=== PATIENT | female | born 1950 | race Two or more races ===

== ENCOUNTER 2017-09-12 14:41 | Emergency (ER) | payer OTHER ==
[~2017-09-12] VITALS: Ht 152.4 cm; Wt 68.0 kg
[~2017-09-12 14:41] MED LIST: ADVIL100 M1 PO; AMOX1TAB12 PO; DICLOFENAC POTA50 MG PO; DICLOFENAC SOD100 GM TOP; KETO10TA2 PO; PANADOL EXTRA500 MG PO
== END 2017-09-12 15:57 | disposition home or self-care (01) ==
LOC: ER 14:41
DX: M94.0 Chondrocostal junction syndrome [Tietze] (principal); M25.511 Pain in right shoulder

== ENCOUNTER → 2017-11-11 | Outpatient (CLI) | payer OTHER ==
[~2017-11-11] MED LIST changes: +GABAPENTIN300 MG PO
== END | disposition home or self-care (01) ==
LOC: RAD 11:14
DX: M12.862 Other specific arthropathies, not elsewhere classified, left knee (principal); M19.012 Primary osteoarthritis, left shoulder

== ENCOUNTER 2018-05-07 09:21 | Outpatient (CLI) | payer OTHER | END 2018-05-07 09:26 | disposition home or self-care (01) | LOC: LAB 09:21 | DX: I10 Essential (primary) hypertension (principal); E11.9 Type 2 diabetes mellitus without complications; E03.8 Other specified hypothyroidism; E78.2 Mixed hyperlipidemia ==

== ENCOUNTER 2018-06-22 08:42 | Outpatient (CLI) | payer OTHER | END 2018-06-22 09:09 | disposition home or self-care (01) | LOC: LAB 08:42 | DX: I10 Essential (primary) hypertension (principal); D68.8 Other specified coagulation defects; E78.2 Mixed hyperlipidemia; N39.0 Urinary tract infection, site not specified ==

== ENCOUNTER 2018-06-22 08:51 | Outpatient (CLI) | payer OTHER | END 2018-06-22 09:09 | disposition home or self-care (01) | LOC: RAD 08:51 | DX: R07.89 Other chest pain (principal) ==

== ENCOUNTER 2018-07-27 14:20 | Emergency (ER) | payer OTHER ==
[~2018-07-27] VITALS: Ht 152.4 cm; Wt 68.5 kg
[2018-07-27] MEDS ORDERED: CEFADROXIL500 MG PO (17:49)
== END 2018-07-27 17:58 | disposition home or self-care (01) ==
LOC: ER 14:20
DX: L03.012 Cellulitis of left finger (principal)

== ENCOUNTER 2018-10-03 09:57 | Outpatient (CLI) | payer OTHER ==
[~2018-10-03 09:57] MED LIST changes: +CEFADROXIL500 MG PO
== END 2018-10-03 10:05 | disposition home or self-care (01) ==
LOC: LAB 09:57
DX: E11.9 Type 2 diabetes mellitus without complications (principal); I10 Essential (primary) hypertension; E03.8 Other specified hypothyroidism; E78.2 Mixed hyperlipidemia; K92.1 Melena; E55.9 Vitamin D deficiency, unspecified

== ENCOUNTER 2018-12-22 09:05 | Outpatient (CLI) | payer OTHER | END 2018-12-22 17:10 | disposition home or self-care (01) | LOC: RAD 09:05 | DX: J18.0 Bronchopneumonia, unspecified organism (principal) ==

== ENCOUNTER 2019-06-15 12:18 | Emergency (ER) | payer OTHER ==
[~2019-06-15] VITALS: Ht 154.9 cm; Wt 72.6 kg
== END 2019-06-15 16:16 | disposition home or self-care (01) ==
LOC: ER 12:18
DX: M76.892 Other specified enthesopathies of left lower limb, excluding foot (principal)

== ENCOUNTER 2020-06-17 11:46 | Emergency (ER) | payer OTHER ==
[~2020-06-17] VITALS: Ht 154.9 cm; Wt 69.4 kg
[2020-06-17] MEDS ORDERED: GLIMEPIRIDE4 M1 PO (12:12)
== END 2020-06-17 15:52 | disposition home or self-care (01) ==
LOC: ER 11:46
DX: N75.1 Abscess of Bartholin's gland (principal); B95.61 Methicillin susceptible Staphylococcus aureus infection as the cause of diseases classified elsewhere

== ENCOUNTER 2021-07-29 08:31 | Outpatient (CLI) | payer OTHER ==
[~2021-07-29 08:31] MED LIST changes: +GLIMEPIRIDE4 M1 PO
== END 2021-07-29 08:34 | disposition home or self-care (01) ==
LOC: MAMO-SONO 08:31
PROVIDERS: ATTEND Internal Medicine Cardiovascular Disease
DX: N60.02 Solitary cyst of left breast (principal); R92.1 Mammographic calcification found on diagnostic imaging of breast; Z12.31 Encounter for screening mammogram for malignant neoplasm of breast; E55.9 Vitamin D deficiency, unspecified; N64.59 Other signs and symptoms in breast

== ENCOUNTER 2022-07-13 09:19 | Outpatient (CLI) | payer OTHER | END 2022-07-13 09:25 | disposition home or self-care (01) | LOC: RAD 09:19 | PROVIDERS: ATTEND Internal Medicine Cardiovascular Disease | DX: M12.9 Arthropathy, unspecified (principal) ==

== ENCOUNTER 2022-08-05 07:50 | Outpatient (CLI) | payer OTHER | END 2022-08-05 07:55 | disposition home or self-care (01) | LOC: MAMO-SONO 07:50 | PROVIDERS: ATTEND Internal Medicine Cardiovascular Disease | DX: N63.11 Unspecified lump in the right breast, upper outer quadrant (principal) ==

== ENCOUNTER 2022-12-29 09:00 | Outpatient (CLI) | payer OTHER | END 2022-12-29 09:07 | disposition home or self-care (01) | LOC: RAD 09:00 | PROVIDERS: ATTEND Internal Medicine Cardiovascular Disease | DX: M12.9 Arthropathy, unspecified (principal) ==

== ENCOUNTER 2024-04-06 11:23 | Outpatient (CLI) | payer OTHER | END 2024-04-06 11:24 | disposition home or self-care (01) | LOC: NUCLEAR 11:23 | PROVIDERS: ATTEND Internal Medicine Cardiovascular Disease | DX: M81.0 Age-related osteoporosis without current pathological fracture (principal) ==

== ENCOUNTER → 2024-04-06 | Outpatient (CLI) | payer OTHER | END | disposition home or self-care (01) | LOC: MAMO-SONO 09:33 | PROVIDERS: ATTEND Internal Medicine Cardiovascular Disease | DX: N60.11 Diffuse cystic mastopathy of right breast (principal); N60.12 Diffuse cystic mastopathy of left breast; Z12.31 Encounter for screening mammogram for malignant neoplasm of breast ==